=== PATIENT | female | born 1950 | race Hispanic/Latino ===

== ENCOUNTER 2019-12-27 16:27 | Emergency (ER) | payer MEDICARE ==
[2019-12-27] MEDS ORDERED: ALBUTEROL SULFATE 0.083% 2.5 MG/3 ML INH IH ONE (17:11)
[2019-12-27 18:28] LABS: BASOPHILS % (AUTO) 0.4 % (0.0-5.0); EOSINOPHILS % (AUTO) 0.8 % (0.0-8.0); LYMPHOCYTES % (AUTO) 16.3 % (21.0-51.0); MEAN CORPUSCULAR HGB CONC 31.6 g/dL (32.0-36.0); MEAN CORPUSCULAR VOLUME 88.8 fL (79-99); MONOCYTES % (AUTO) 8.9 % (3.0-13.0); NEUTROPHILS % (AUTO) 72.7 % (40.0-77.0); PLATELET COUNT (AUTO) 475 K/uL (130-400); RED BLOOD CELL COUNT(AUTO) 4.28 MIL/uL (4.00-5.50); RED CELL DISTRIBUTION WIDTH 13.1 % (11.0-15.5); WHITE BLOOD COUNT (AUTO) 14.3 K/uL (4.8-10.8)
[2019-12-27 18:51] LABS: CREATININE 1.3 mg/dL (0.5-1.5); POTASSIUM 3.9 mmol/L (3.5-5.1)
[2019-12-27 19:01] LABS: B-TYPE NATRIURETIC PEPTIDE 59 pg/mL (0-100)
[2019-12-27] MEDS ORDERED: DOXYCYCLINE HYCLATE 100 MG TABLET PO ONE (19:20)
== END 2019-12-27 20:45 | disposition home or self-care (01) ==
LOC: EDH 16:27
DX: R06.00 Dyspnea, unspecified (principal); J20.8 Acute bronchitis due to other specified organisms
CPT/HCPCS: 36415; 71045; 80048; 83880; 84484; 85025; 93005; 94640

== ENCOUNTER 2020-01-26 11:52 | Emergency (ER) | payer MEDICARE ==
[2020-01-26] MEDS ORDERED: TETANUS/DIPHTHERIA TOXOID [ADULT] 0.5 ML VIAL IM ONE (11:56)
[2020-01-26] MEDS ORDERED: OCTYL 2-CYANOACRYLATE 1 EACH TP ONE (12:40)
== END 2020-01-26 13:05 | disposition home or self-care (01) ==
LOC: EDH 11:52
DX: S01.81XA Laceration without foreign body of other part of head, initial encounter (principal); J44.9 Chronic obstructive pulmonary disease, unspecified; I10 Essential (primary) hypertension; W01.198A Fall on same level from slipping, tripping and stumbling with subsequent striking against other object, initial encounter; Y93.89 Activity, other specified; Y92.008 Other place in unspecified non-institutional (private) residence as the place of occurrence of the external cause; Y99.8 Other external cause status
CPT/HCPCS: 12013; 70450; 72125; 90471; 90714